=== PATIENT | male | born 1950 | race American Indian/Alaskan Native ===

== ENCOUNTER 2022-01-21 19:32 | Emergency (ER) | payer MEDICARE ==
--- NOTE | 2022-01-21 19:48 | Emergency Department Report ---
HPI - General Time Seen by Provider: 01/21/22 19:38 - HPI HPI: This patient presents to the emergency department via EMS from home in cardiac arrest. Apparently the patient was last known to be alive at around 4:30 PM when a family member spoke to him on the phone. They returned to the house and when they opened the door they found him unresponsive. No bystander CPR was initiated and they called for EMS. EMS says that they were told he has a past medical history of hypertension diabetes and some type of issue with his prostate. They intubated the patient and started ACLS protocol including bag valve ventilation, chest compressions and ACLS medications. The patient was given 4 rounds of epinephrine, 1 dose of sodium bicarbonate and 1 dose of calcium. An Accu-Chek was done in route and the patient's blood sugar was at about 330. The patient was "down", pulseless, for about 30 minutes prior to presentation into room #22. EMS says that they never obtained ROSC and he was in PEA. ED Review of Systems ROS: Stated complaint: CARDIAC ARREST Other details as noted in HPI Comment: Unobtainable due to pts medical conditions Physical Exam - Physical Exam Physical Exam: GENERAL: Patient is ill-appearing and unresponsive. HENT: Normocephalic. Atraumatic. EYES: Pupils are fixed and dilated. NECK: Supple. Trachea appears midline. CHEST/LUNGS: There are no spontaneous respirations. HEART/CARDIOVASCULAR: There are no spontaneous heart sounds. ABDOMEN: Abdomen is soft. There is no abdominal distention. SKIN: Skin is cool but dry. NEURO: Unresponsive. Does not withdraw to painful stimuli. Does not follow any commands. MUSCULOSKELETAL: There is no obvious deformity. There is no evidence of acute injury. No palpable femoral or radial pulses. - Procedure Description Procedures done: Supervision of ACLS: I was the supervising physician for ACLS protocol performed on this patient for a total of 10 minutes. The patient was given bag valve ventilation through the endotracheal tube. He received continuous chest compressions. He was given 2 doses of epinephrine and 1 of sodium bicarbonate. He remained in PEA without ROSC and time of was called at 1740. ED Medical Decision Making - Medical Decision Making This patient presents in cardiac arrest from home. He was last seen alive at about 4:30 PM. EMS estimates that they were called at about 6:50 PM when the patient sister came in the house and found him unresponsive and pulseless on the ground. Bystander CPR was not initiated. EMS arrived and began doing chest compressions, intubated the patient and then began with bag valve ventilation. Overall the patient received 4 rounds of epinephrine, 1 dose of sodium bicarbonate and 1 dose of calcium prior to arrival in the emergency department. He was in PEA without ROSC through prearrival. The patient was brought into room #22 where he was attached to the [employer] monitor and once again appeared in PEA. We continued ACLS protocol. Once again the patient was receiving bag valve ventilation, chest compressions, and he had another 2 doses of epinephrine and 1 of sodium bicarbonate. The patient was in PEA for all 3 pulse and rhythm checks. By this time the patient had been pulseless and without oxygen for about 40 minutes. Pupils are fixed and dilated, and there are no spontaneous heart or breath sounds. Time of was called at 1940. I spoke to the patient's sister and she was notified of his expiration, and then given an opportunity to see the patient. Critical Care Time: No Critical care attestation.: If time is entered above; I have spent that time in minutes in the direct care of this critically ill patient, excluding procedure time. ED Disposition Clinical Impression: Cardiac arrest Acute respiratory failure Qualifiers: Respiratory failure complication: unspecified whether with hypoxia or hypercapnia Qualified Code(s): J96.00 - Acute respiratory failure, unspecified whether with hypoxia or hypercapnia Disposition: 20 Is pt being admited?: No Time of Disposition: 20:29
== END 2022-01-21 22:00 ==
LOC: ED 19:32
DX: I46.9 Cardiac arrest, cause unspecified (principal); J96.00 Acute respiratory failure, unspecified whether with hypoxia or hypercapnia
CPT/HCPCS: 92950; 99285